=== PATIENT | female | born 1960 | race Caucasian/White ===

== ENCOUNTER 2019-08-14 02:04 | Outpatient (CLI) | payer BC, SELFPAY ==
--- NOTE | 2019-08-14 07:15 | DI.MAMMO_ITS ---
EXAM: MG MAMMO SCREENING CLINICAL HISTORY: Screening, Z12.39. TECHNIQUE: Bilateral full field digital CC and MLO mammographic images were obtained with 3D tomosyn thesis and utilizing computer aided detection (CAD). COMPARISON: Available for comparison. FINDINGS: Masses/Architectural Distortion: None seen. Microcalcifications: No suspicious pleomorphic-type are seen. Skin Thickening/Nipple Retraction: None. Since the prior examination, the patient has had interval placement of a neurostimulator. The device limits evaluation particularly on the craniocaudad view of the right breast. IMPRESSION: 1. No significant interval change with no specific features of malignancy noted. 2. Unless there is more urgent need, screening mammography is recommended, as per [employer] guidelines. ACR BI-RAD Category- 1 Negative Breast Density - Category B - Scattered areas of fibroglandular density A negative radiographic report should not delay biopsy if a dominant or clinically suspicious mass is present. Up to ten percent of cancers are not identified on mammography. A negative report may reinforce clinical impression. Adenosis and dense breasts may obscure an underlying neoplasm. False positive reports average 6 to 10%. Patient will receive a letter notifying them of these results.
== END 2019-08-14 02:24 ==
PROVIDERS: PCP Family Medicine; Visit Provider Family Medicine
DX: Z12.31 Encounter for screening mammogram for malignant neoplasm of breast (principal); Z96.82 Presence of neurostimulator
CPT/HCPCS: 77063; 77067

== ENCOUNTER 2019-08-14 03:28 | Outpatient (CLI) | payer BC, SELFPAY ==
[2019-08-14 09:54] LABS: Calculated LDL 192 mg/dL (<100); Cholesterol 289 mg/dL (<200); HDL Cholesterol 51 mg/dL (40-60); Triglyceride 233 mg/dL (<150)
== END 2019-08-14 03:48 ==
PROVIDERS: PCP Family Medicine; Visit Provider Family Medicine
DX: Z13.220 Encounter for screening for lipoid disorders (principal)
CPT/HCPCS: 36415; 80061

== ENCOUNTER 2020-03-25 03:05 | Outpatient (CLI) | payer BC, SELFPAY ==
[2020-03-25 12:18] LABS: ALT 18 U/L (14-59); AST 20 U/L (15-37); Alkaline Phosphatase 102 U/L (46-116); Anion Gap 8.7 mmol/L (3-11); BUN 22 mg/dL (7-18); Bilirubin, Total 0.5 mg/dL (0.2-1.0); CO2 26.3 mmol/L (21.0-32.0); CREATININE 0.83 mg/dL (0.55-1.02); Calcium 9.7 mg/dL (8.5-10.1); Chloride 104 mmol/L (98-107); Glucose 85 mg/dL (74-106); Lipase 52 U/L (73-393); Potassium 4.4 mmol/L (3.5-5.1); Sodium 139 mmol/L (136-145)
[2020-03-26 13:46] LABS: C Diff PCR Negative (Negative)
[2020-04-01 14:53] LABS: Campylobacter PCR Negative (Negative); Salmonella PCR Negative (Negative); Shiga Toxin PCR Negative (Negative); Shigella/Enteroinvasive Ecoli Negative (Negative)
== END 2020-03-25 03:25 ==
PROVIDERS: PCP Family Medicine; Visit Provider Family Medicine
DX: R19.7 Diarrhea, unspecified (principal)
CPT/HCPCS: 36415; 80053; 83690; 87329; 87493; 87505; 82710

== ENCOUNTER 2021-10-28 02:42 | Outpatient (CLI) | payer BC, OTHER, SELFPAY ==
[2021-10-28 08:40] LABS: ALT 9 U/L (14-59); AST 17 U/L (15-37); Albumin 3.9 g/dL (3.4-5.0); Alkaline Phosphatase 104 U/L (46-116); Anion Gap 4.6 mmol/L (3-11); BUN 16 mg/dL (7-18); Bilirubin, Total 0.4 mg/dL (0.2-1.0); CO2 28.4 mmol/L (21.0-32.0); CREATININE 0.7 mg/dL (0.55-1.02); Calcium 8.9 mg/dL (8.5-10.1); Calculated LDL 172 mg/dL (<100); Chloride 104 mmol/L (98-107); Cholesterol 279 mg/dL (<200); Glucose 89 mg/dL (74-106); HDL Cholesterol 55 mg/dL (40-60); Potassium 4.3 mmol/L (3.5-5.1); Sodium 137 mmol/L (136-145); Total Protein 6.9 g/dL (6.4-8.2); Triglyceride 263 mg/dL (<150)
[2021-10-29 11:44] LABS: Hepatitis C Ab w Rflx HCV PCR Negative (Negative)
[2021-10-29 11:55] LABS: HIV-1/2 Ag & Ab Screen Negative (Negative)
== END 2021-10-28 02:43 | disposition home or self-care (01) ==
LOC: LBO 02:42
PROVIDERS: PCP Family Medicine; Referring Provider Family Medicine; Visit Provider Family Medicine
DX: E78.5 Hyperlipidemia, unspecified (principal); Z11.3 Encounter for screening for infections with a predominantly sexual mode of transmission; Z11.4 Encounter for screening for human immunodeficiency virus [HIV]; Z11.59 Encounter for screening for other viral diseases
CPT/HCPCS: 36415; 80053; 80061; 86803; 87389

== ENCOUNTER → 2021-11-20 02:36 | Outpatient (CLI) | payer BC, OTHER, SELFPAY ==
--- NOTE | 2021-11-20 08:09 | DI.MAMMO_ITS ---
Exam(s) MAMMO SCREENING EXAM: MAMMO SCREENING CLINICAL HISTORY: screening, Z12.39 TECHNIQUE: Bilateral full field digital CC and MLO mammographic images were obtained with 3D tomosyn thesis and utilizing computer aided detection (CAD). COMPARISON: Available for comparison. FINDINGS: Masses/Architectural Distortion: There are stable bilateral breast nodules. No suspicious nodules or areas of architectural distortion is seen. Microcalcifications: No suspicious pleomorphic-type are seen. Skin Thickening/Nipple Retraction: None. IMPRESSION: 1. No significant interval change with no specific features of malignancy noted. 2. Unless there is more urgent need, screening mammography is recommended, as per [employer] guidelines. BI-RADS Category 1 - Negative Breast Density - Category B - Scattered areas of fibroglandular density Breast density category C or D implies that the patient has dense breast tissue. Dense breast tissue is very common and is not abnormal but dense breast tissue can make it harder to find cancer on a ma mmogram. Also, dense breast tissue may increase their breast cancer risk. This information about the result of the mammogram report was provided to the patient to raise their awareness. Use this report when you speak with the patient about their risks for breast cancer, which includes their family hist ory. At that time, you may recommend for more screening tests (Ultrasound or MRI) as they might be us eful based on their risk. A negative radiographic report should not delay biopsy if a dominant or clinically suspicious mass is present. Up to ten percent of cancers are not identified on mammography. A negative report may reinforce clinical impression. Adenosis and dense breasts may obscure an underlying neoplasm. False positive reports average 6 to 10%. Patient will receive a letter notifying them of these results.
== END ==
PROVIDERS: PCP Family Medicine; Visit Provider Family Medicine
DX: Z12.31 Encounter for screening mammogram for malignant neoplasm of breast (principal)
CPT/HCPCS: 77063; 77067

== ENCOUNTER 2023-11-15 14:51 | Emergency (ER) | payer BC, OTHER, SELFPAY ==
[2023-11-15] VITALS (40 sets, daily range): BP systolic 132–160; BP diastolic 73–90; PULSE 65–84; RESP 13–28; TEMP 36.6; O2SAT 97
--- NOTE | 2023-11-15 14:30 | RT.EKG_ITS ---
APPROVED REPORT Exam: Resting ECG Reason for Exam: chest heaviness Patient Location: E HR:71 bpm ECG Measurements Heart Rate 71 AXIS MA 180 P 65 QRSd 89 QRS 44 QT 433 T 44 QTc 471 Conclusion Sinus rhythm...normal P axis, V-rate 60- 99 Consider anteroseptal infarct...Q >30mS, dimin R, V1-V2 Narrow complex normal sinus rhythm at a rate of 71. Normal axis. Intervals within normal limits. S ignificant artifact in V1. Mild ST segment elevation submillimeter in V2. ST segment flattening caro d aVF and left lateral chest wall leads. No prior for comparison.
--- NOTE | 2023-11-15 14:45 | ED.GENADUL_ITS ---
Discharge Plan Disposition Patient Disposition: Home Discharge Details Clinical Impression: Chest pain, unspecified Primary Care Provider: Caden Smith ED Provider: Ben Kinney Home Meds and New Rx's Prescriptions: Continued carboxymethylcellulose sodium [Refresh Celluvisc] 1 % dropperette,gel 1 drp OP PRN Rx Instructions: to both eyes gabapentin 100 mg capsule 300 mg PO QHS Rx Instructions: Neurology at [facility] [place] hydrocortisone [Proctosol HC] 2.5 % cream with perineal applicator 1 applic GA Q6H PRN PRN (Reason: hemorrhoids) Qty: 30 6RF Patient Comments: has not needed recently fluticasone propionate [Flonase Allergy Relief] 9.9 ML spray,suspension 9.9 ml NS PRN carbidopa-levodopa 25-100 mg tablet 1 tab PO TID acetaminophen 325 mg capsule 650 mg PO Q4H PRN rosuvastatin 5 mg tablet 5 mg PO DAILY Qty: 90 3RF Discharge Instructions Instructions: Chest Pain (ED) Additional Instructions: You are seen in the emergency department for your chest pain. If you develop recurrent chest pain please return to the emergency department. Please continue taking your home medications as previously scheduled. Please follow-up with her primary care provider later this week. Discharge Data Discharge Date/Time-TO BE ENTERED AT DEPARTURE: 11/15/23 19:02 HPI General Date/Time Provider Initiated Documentation: 11/15/23 14:56 . HPI Narrative: MDM This is an uncomfortable appearing normothermic and not tachycardic 63-year-old female with hyperlipidemia and chest pressure concerning for the possibility of NSTEMI given ECG with no ST segment elevations. No tearing quality to suggest dissection. No cough to suggest pneumonia and no fevers. Not hypotensive tachycardic nor a dialysis patient so my suspicion is low for tamponade as patient has no significant pericardial effusion. Patient has been vomiting however has no crepitance so my suspicion for esophageal rupture is low. No rash to chest to suggest zoster. No pain out of proportion to suggest necrotizing soft tissue infection. No trauma to the chest so my suspicion is low for pneumothorax as patient has bilateral equal breath sounds and no indication for chest tube placement. Patient is not short of breath however PE is certainly a possibility given chest pain. Given her low risk we will obtain a D-dimer as she has no clinical signs of DVT and has a low Wells score. Will treat with 324 mg of aspirin. No ongoing chest pain so will defer nitroglycerin. 3:20 PM CBC lacks anemia thrombocytopenia and leukocytosis. 3:44 PM Negative initial troponin. Comprehensive metabolic panel with mild hyperglycemia but no anion gap. No REYNALDO. No acute electrolyte abnormalities. No LFT abnormalities. Negative D-dimer. 5:30 PM Patient felt markedly improved in the ED. No persistent chest pain. 6:38 PM Repeat troponin negative. Patient continues to feel well. I offered patient hospitalization given her elevated heart score. She requested to be discharged. I advised ED return for any recurrent chest pain and syncope. She understood her return indications. I advised PCP follow-up. She was discharged with empi contreras trial of outpatient expectant management. HEART SCORE Chest pain Diagnostic Protocol: [- History/Physical/Gestalt: Moderately Suspicious (+1)] [- EKG: Nonspecific repolarization (+1)] [- AGE: 45-65 (+1)] [- RISK FACTORS: 1 - 2 risk factors (+1)] [-TROPONIN: <= normal limit (0)] - TOTAL SCORE: 4 - Risk Factors: DM, current or recent smoker, HTN, HLD, family hx of CAD, obesity - INTERPRETATION: With a total score of 3 or less, risk of major cardiac event within six weeks 1.7%, likely lower with two negative troponins. 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 Stimulator in place right chest wall. Per my independent interpretation EKG shows: Narrow complex normal sinus rhythm at a rate of 71. Normal axis. Intervals within normal limits. Significant artifact in V1. Mild ST segment elevation submillimeter in V2. ST segment flattening lead aVF and left lateral chest wall leads. No prior for comparison. ]Medications: Aspirin ondansetron Social determinants of health affecting disposition: N/A Management discussed with: N/A Treatment/interventions considered: Hospitalization but deferred based on patient preference Response to therapies provided: Improved symptoms in the emergency department HPI This is a 63-year-old female with a history of hyperlipidemia Parkinson's disease with deep brain stimulator in place arriving to the emergency department in the setting of sudden onset weakness, chest pressure, nausea, vomiting, and diarrhea which began acutely at 11:30 AM this morning. Patient was reportedly working at that time. She called paramedics after she began vomiting and having diarrhea. She denies any pain at the moment. She said that her chest pain is improved when she lays down. She denies any radiation to her chest pain. She does have a family history significant for myocardial infarction in her father when he was age 62. Patient denies history of tobacco, ethanol, illicits. She denies history of hypertension and diabetes. Denies abdominal pain fevers dysuria frequency. No recent falls. Exam General: Uncomfortable-appearing in no acute distress speaking in complete sentences. Head: Normocephalic, atraumatic. Eye: Extraocular eye movements intact. No conjunctival injection. No scleral icterus. Ear, nose, mouth, throat: Grossly normal inspection. Normal voice, handling secretions normally. Neck: Trachea midline. Cardiovascular: Well-perfused distal extremities. Regular rate and rhythm. Respiratory: Nonlabored respiration. Clear lungs bilaterally. Gastrointestinal: Nondistended abdomen. Soft nontender. No rebound. No guarding. Musculoskeletal: No edema. Moving all 4 extremities spontaneously. Skin: Normal for age and race, grossly normal temperature and turgor. No acute rash. Neurologic: Alert and appropriate. Jaw tremor and both resting and postural tremor. There is some rigidity bilaterally and bradykinesia. GCS 15. Psychiatric: Mood and manner are appropriate. Grooming and personal hygiene are appropriate. Related Data Home Medications Medication Instructions Recorded Confirmed fluticasone propionate 50 9.9 ml NS PRN 12/01/16 11/15/23 mcg/actuation nasal spray,suspension (Flonase Allergy Relief) carboxymethylcellulose sodium 1 % 1 drp ophthalmic (eye) PRN 06/30/19 11/15/23 eye gel in a dropperette (Refresh Celluvisc) hydrocortisone 2.5 % topical cream 1 applic GA Q6H PRN PRN 03/22/20 11/15/23 with perineal applicator hemorrhoids #30 grams (Proctosol HC) acetaminophen 325 mg capsule 650 mg PO Q4H PRN 06/24/22 11/15/23 carbidopa 25 mg-levodopa 100 mg 1 tab PO TID 06/24/22 11/15/23 tablet rosuvastatin 5 mg tablet 5 mg PO DAILY #90 tabs 01/04/23 11/15/23 gabapentin 100 mg capsule 300 mg PO QHS 11/09/23 11/15/23 Previous Rx's Medication Instructions Recorded hydrocortisone 2.5 % topical cream 1 applic GA Q6H PRN PRN 03/22/20 with perineal applicator hemorrhoids #30 grams (Proctosol HC) rosuvastatin 5 mg tablet 5 mg PO DAILY #90 tabs 01/04/23 Allergies Allergy/AdvReac Type Severity Reaction Status Date / Time venom-honey bee Allergy Severe Anaphylaxsi Verified 11/09/23 08:40 s atorvastatin Allergy Intermediate Skin Rash Verified 11/09/23 08:40 latex Allergy Intermediate Skin Rash Verified 11/09/23 08:40 Beta-Blockers AdvReac Severe hypotension Verified 11/09/23 08:40 (Beta-Adrenergic Bloc propranolol HCl AdvReac Intermediate HYPOTENSION Verified 11/09/23 08:40 [From Inderal LA] verapamil AdvReac Intermediate INTOLERANT Verified 11/09/23 08:40 diazepam AdvReac Mild SEDATION Verified 11/09/23 08:40 meperidine HCl [From Demerol] AdvReac Mild Nausea Verified 11/09/23 08:40 rasagiline AdvReac Other (See Verified 11/09/23 08:40 Comment) Medical Decision Making Quality:SDOH Health Related Social Needs: No Data to Display PFSH All Active Problems (Updated 11/15/23 @ 18:41 by Ben Kinney MD) Chest pain, unspecified (Acute) Restless legs syndrome (Acute) SARS-CoV-2 positive (Acute ~03/05/22) Hyperlipidemia (Acute) Low vitamin D level (Acute) Hemorrhoids (Acute) Irritable bowel syndrome (Chronic) Hearing loss (Acute) Sleep apnea (Acute) Diverticular disease (Acute) Parkinsons disease (Chronic) s/p deep brain stimulator Chronic headache (Acute 12/26/14) Essential tremor (Acute 12/26/14) Migraine headache with aura (Acute 12/26/14) Migraine headache without aura (Acute 12/26/14) Diverticulitis of intestine with abscess (Acute) Migraine (Acute) Medical History (Updated 11/15/23 @ 18:41 by Ben Kinney MD) Colonic polyp Benign essential tremor Surgical History (Updated 09/14/23 @ 17:17 by April Haney) S/P deep brain stimulator placement History of abdominal hysterectomy History of cholecystectomy Family History Father , Age 52 Heart disease Hypertension Alcohol abuse Mother Lung cancer Parkinsons disease Essential tremor Paternal Grandmother Multiple sclerosis Maternal Grandmother Diabetes Social History (Updated 11/03/22 @ 08:45 by April Haney) Smoking/Tobacco Use Status: Never Smoking risk assessment performed?: Yes Alcohol Intake: never Drug use: Never Substance use type: does not use Adopted: No Foster care: No Household members: spouse Housing: house Number of Children: 3 number of grandchildren: 2 Education Level: high school Do you need help understanding health information?: Never current occupation: [employer] Pets and animals: No Sexually active: No Do you think of yourself as: straight/heterosexual Current gender identity: female What is your relationship status?: How often do you talk on the phone with friends or family?: once per week How often do you get together with friends or relatives?: once per week Do you belong to any clubs or organized social groups?: no Panel score (0-1 are the most socially isolated patients): 1 What type of physical activity do you participate in: decline to answer Duration: 15-30 minutes/day Frequency: 5-6 times per week Heather/Spiritism: None Seatbelt use: always Helmet use: Yes Drive intox or ride w/intox furniture delivery driver: No Working smoke detector in home: Yes Fire extinguisher in home: Yes Carbon monox detector in home: Yes Do you feel safe at home: Yes Do you feel safe in your relationship?: Yes POCUS Exam (ED) Limited Cardiac Exam DATE OF EXAM: 11/15/23 TIME OF EXAM: 15:16 PROVIDER THAT PERFORMED THE STUDY: Ben Kinney IS THIS A REPEAT EXAM DURING THIS ENCOUNTER: no REASON FOR EXAM: Chest pain VISUALIZED STRUCTURES: Four Chambers, Left ventricle and LVOT VIEW OBTAINED: Apical 4-Chamber, Parasternal long-axis and Subxiphoid PERTINENT FINDINGS/IMPRESSION: No pericardial effusion and No RV dilation DIFFERENTIAL DIAGNOSES: Aortic outflow track less than 4 cm, good squeeze, RV less than LV, no significant pericardial effusion. Exam complete
--- NOTE | 2023-11-15 15:00 | DI.RAD_ITS ---
Exam(s) XR PORTABLE CHEST AP EXAM: XR PORTABLE CHEST AP CLINICAL HISTORY: Chest pain. TECHNIQUE: 2D digital imaging was performed. COMPARISON: CR CHEST 2 VIEWS PA,LAT from 10/20/2016 FINDINGS: Single AP portable view. Right anterior chest wall stimulator with lead heading towards the intracranial compartment. Heart size is upper normal. The mediastinum is not widened. Lungs are clear. No infiltrates nor obvious pleural effusions. IMPRESSION: No acute pulmonary findings on this single AP portable view of the chest. DATA REPOSITORY: RADIATION DOSE DELIVERED:
[2023-11-15] MEDS: Normal Saline 500 ML IV (15:07)
[2023-11-15] MEDS: Aspirin 81 MG CHEW 324 MG CH (15:07)
[2023-11-15] MEDS: Ondansetron 4 MG/2 ML VIAL IVP (15:07)
[2023-11-15 15:08] LABS: Abs Immature Grans 0.06 10^3/uL (0.0-0.06); Absolute Basophil Count 0.03 10^3/uL (0.0-0.2); Absolute Eosinophil Count 0.07 10^3/uL (0.0-0.7); Absolute Lymphocyte Count 1.41 10^3/uL (1.2-3.4); Absolute Monocyte Count 0.54 10^3/uL (0.1-0.8); Absolute Neutrophil Count 8.01 10^3/uL (1.2-6.7); Basophils % 0.3 %; Eosinophils % 0.7 %; HCT 41.3 % (36.0-46.0); HGB 13.6 g/dL (11.2-15.7); Immature Grans % 0.6 %; Lymphocytes % 13.9 %; MCH 29.1 pg (27.0-33.0); MCHC 32.9 % (32.0-36.0); MCV 88 fL (80-95); MPV 9.7 fL (8.0-11.0); Monocytes % 5.3 %; Neutrophils % 79.2 %; Platelet Count 250 10^3/uL (130-400); RBC 4.68 10^6/uL (3.93-5.22); RDW 12.8 % (11.7-14.6); RDW-SD 41.2 fL; WBC 10.12 10^3/uL (4.4-10.8)
[2023-11-15 15:40] LABS: D-Dimer 479 ng/mlFEU (<500)
[2023-11-15 15:42] LABS: ALT 11 U/L (14-59); AST 14 U/L (15-37); Alkaline Phosphatase 104 U/L (46-116); Anion Gap 8.5 mmol/L (3-11); BUN 17 mg/dL (7-18); Bilirubin, Total 0.4 mg/dL (0.2-1.0); CO2 25.5 mmol/L (21.0-32.0); CREATININE 0.7 mg/dL (0.55-1.02); Calcium 9.1 mg/dL (8.5-10.1); Chloride 105 mmol/L (98-107); Estimated GFR 97.72 (mL/min/1.73m2); Glucose 151 mg/dL (74-106); Potassium 3.9 mmol/L (3.5-5.1); Sodium 139 mmol/L (136-145); Total Protein 7.5 g/dL (6.4-8.2)
[2023-11-15 15:43] LABS: Troponin I < 50 ng/L (< or =60)
[2023-11-15 18:30] LABS: Troponin I < 50 ng/L (< or =60)
== END 2023-11-15 19:02 | disposition home or self-care (01) ==
PROVIDERS: Emergency Provider Emergency Medicine; PCP Family Medicine
DX: R07.9 Chest pain, unspecified (principal)
CPT/HCPCS: 36415; 80053; 93005; 93308; 96361; 96374; 99284; 71045; 84484; 85025; 85379; 93010; 99283; J2405

== ENCOUNTER → 2023-12-03 04:09 | Outpatient (CLI) | payer BC, OTHER, SELFPAY ==
--- NOTE | 2023-12-03 06:45 | DI.MAMMO_ITS ---
Exam(s) MAMMO SCREENING EXAM: MAMMO SCREENING CLINICAL HISTORY: screening, Z12.39 TECHNIQUE: Bilateral full field digital CC and MLO mammographic images were obtained with 3D tomosyn thesis and utilizing computer aided detection (CAD). COMPARISON: Available for comparison. FINDINGS: Masses/Architectural Distortion: There is a new nodule in the central right retroareolar region appre ciated on the CC view measuring 6 mm. It is 3.3 mm from the nipple. Microcalcifications: No suspicious pleomorphic-type are seen. Skin Thickening/Nipple Retraction: None. IMPRESSION: 1. New right breast nodule. 2. Spot compression views requested for further evaluation. Limited right breast ultrasound may be i ndicated at that time. BI-RADS Category 0 - Assessment Incomplete: Need additional imaging evaluation Breast Density - Category B - Scattered areas of fibroglandular density Breast density category C or D implies that the patient has dense breast tissue. Dense breast tissue is very common and is not abnormal but dense breast tissue can make it harder to find cancer on a ma mmogram. Also, dense breast tissue may increase their breast cancer risk. This information about the result of the mammogram report was provided to the patient to raise their awareness. Use this report when you speak with the patient about their risks for breast cancer, which includes their family hist ory. At that time, you may recommend for more screening tests (Ultrasound or MRI) as they might be us eful based on their risk. A negative radiographic report should not delay biopsy if a dominant or clinically suspicious mass is present. Up to ten percent of cancers are not identified on mammography. A negative report may reinforce clinical impression. Adenosis and dense breasts may obscure an underlying neoplasm. False positive reports average 6 to 10%. Patient will receive a letter notifying them of these results.
== END ==
PROVIDERS: PCP Family Medicine; Visit Provider Family Medicine
DX: Z12.31 Encounter for screening mammogram for malignant neoplasm of breast (principal)
CPT/HCPCS: 77063; 77067

== ENCOUNTER → 2023-12-08 00:26 | Outpatient (CLI) | payer BC, OTHER, SELFPAY ==
--- NOTE | 2023-12-08 | DI.US_ITS ---
Exam(s) US BREAST RT COMPLETE EXAM: US BREAST RT COMPLETE CLINICAL HISTORY: New Rt Breast nodule. TECHNIQUE: Complete ultrasound of the right breast was performed including all 4 quadrants, the retr oareolar region, and the ipsilateral axilla. COMPARISON: Prior mammograms were reviewed. FINDINGS: SEE COMBINED REPORT IMPRESSION: Appropriate follow-up is . BI-RADS Category 3 - 6 month - Probably Benign Finding: Recommend follow-up mammography in 6 months Breast Density - Category B - Scattered areas of fibroglandular density Breast density Category C or D implies that the patient has dense breast tissue. Dense breast tissue can make it harder to find cancer on a mammogram. Dense breast tissue is also associated with an incr eased risk of breast cancer. This information about the result of the mammogram report was provided to the patient to raise their awareness. Use this report when you speak with the patient about their risks for breast cancer, which includes their family history. At that time, you may recommend additional screening tests (Ultrasoun d or MRI) as these tests may add significant information. A negative radiographic report should not delay biopsy if a dominant or clinically suspicious mass is present. Up to ten percent of cancers are not identified on mammography. A negative report may reinforce clinical impression. Adenosis and dense breasts may obscure an underlying neoplasm. False positive reports average 6 to 10%. Patient will receive a letter notifying them of these results.
--- NOTE | 2023-12-08 | DI.MAMMO_ITS ---
Exam(s) MG MAMMO SCREEN CALL BACK UNI EXAM: MG MAMMO SCREEN CALL BACK UNI-RIGHT AND COMPLETE RIGHT BREAST ULTRASOUND CLINICAL HISTORY: NEW RT BREAST NODULE R92.8 ABNL MAMMO. TECHNIQUE: Unilateral RIGHT BREAST spot mammographic images obtained with 3D tomosynthesisand utiliz ing computer aided detection (CAD). . Complete RIGHT breast Ultrasound was also performed, including all 4 quadrants, the retroareolar homer on, and the ipsilateral axilla. COMPARISON: Prior mammograms were reviewed. This additional imaging was performed due to findings described on the recent screening mammogram of 12/03/2023. FINDINGS: DIAGNOSTIC MAMMOGRAM: Additional mammographic views performed todaydoes not dissipate the new nodule. We proceeded with cierra white. COMPLETE RIGHT BREAST ULTRASOUND: Ultrasound performed today reveals 2 findings at the 12 o'clock position. There is a microcyst which measures 5 x 3 mm, corresponding to one of the 2 nodules in the retroareol ar region on the mammogram.. Adjacent to this is a subtle finding which has benign appearance, is wi shiv than taller, measuring approximately 10 by 4 mm, possibly representing part of her pattern or a s mall conglomeration microcysts. Nevertheless, it has benign appearance. A 3rd finding is at the 7 o'clock position where there is a 8 x 5 mm microcyst. This probably corres ponds to the larger of the 2 mood nodule seen on the mammogram, this being the newer nodule which was mention on the recent screening mammogram of 12/03/2023. There are no other new ultrasound findings in all 4 quadrants. Scanning of the ipsilateral axilla reveals no significant adenopathy. IMPRESSION: 1. Three benign-appearing ultrasound findings in the retroareolar region of the right breast, as michael cribed individually above. 2. I feel that the new finding on the mammogram corresponds to an 8 x 5 mm microcyst which is seen a t the central 7 o'clock position. Appropriate follow-up as discussed by myself with the patient today is repeat right breast mammogram and ultrasound in 6 months. The patient was informed of these findings and recommendations by myself prior to leaving the departm ent today. BI-RADS Category 3 - 6 month - Probably Benign Finding: Recommend follow-up mammography in 6 months Breast Density - Category B - Scattered areas of fibroglandular density Breast density Category C or D implies that the patient has dense breast tissue. Dense breast tissue can make it harder to find cancer on a mammogram. Dense breast tissue is also associated with an incr eased risk of breast cancer. This information about the result of the mammogram report was provided to the patient to raise their awareness. Use this report when you speak with the patient about their risks for breast cancer, which includes their family history. At that time, you may recommend additional screening tests (Ultrasoun d or MRI) as these tests may add significant information. A negative radiographic report should not delay biopsy if a dominant or clinically suspicious mass is present. Up to ten percent of cancers are not identified on mammography. A negative report may reinforce clinical impression. Adenosis and dense breasts may obscure an underlying neoplasm. False positive reports average 6 to 10%. Patient will receive a letter notifying them of these results.
== END ==
PROVIDERS: PCP Family Medicine; Visit Provider Family Medicine
DX: N63.10 Unspecified lump in the right breast, unspecified quadrant (principal); R92.8 Other abnormal and inconclusive findings on diagnostic imaging of breast
CPT/HCPCS: 76642; 77063; 77067

== ENCOUNTER 2024-02-15 15:01 | Emergency (ER) | payer BC, OTHER, SELFPAY ==
--- NOTE | 2024-02-15 15:00 | RT.EKG_ITS ---
APPROVED REPORT Exam: Resting ECG Reason for Exam: Stroke eval Patient Location: E HR:78 bpm ECG Measurements Heart Rate 78 AXIS ND 171 P 40 QRSd 91 QRS 18 QT 392 T 26 QTc 446 Conclusion Sinus rhythm Rate 78 Baseline tremor artifact somewhat limits interpretation, no STEMI noted
[2024-02-15 15:03] VITALS: BP 162/87; PULSE 79; RESP 16; TEMP 36.1; O2SAT 97
--- NOTE | 2024-02-15 15:15 | DI.CT_ITS ---
Exam(s) CT BRAIN NECK CTA EXAM: CT BRAIN NECK CTA CLINICAL HISTORY: R. facial numbness, AUGUSTIN. TECHNIQUE: Imaging Protocol: Axial CT angiography was performed with multi-slice acquisition and mu lti-planar and/or 3D reconstructions. CONTRAST MATERIAL: Intravenous: Omnipaque 350 contrast volume:70 mL COMPARISON: CT HEAD WITHOUT CONTRAST from 09/19/2017 FINDINGS: There is artifact from the patient's implants. CT Head W/O and W: Ventricles and Extra axial spaces: Normal in size and morphology for the patient's age. Hemorrhage: None. Cerebral parenchyma: No acute territorial infarct is identified at this time. There is no mass effec t or midline shift. Midline shift: None. Brainstem/Cerebellum: Normal. Calvarium: Normal. Visualized Paranasal sinuses/Mastoids: There is mild mucosal thickening in the right maxillary sinus. There is opacification of several ethmoid air cells bilaterally. Soft Tissues: Unremarkable. Enhancement: Unremarkable. CTA Neck W: Common Carotid: Right: No dissection, occlusion or significant stenosis. Left: No dissection, occlusion or significant stenosis. Mild atherosclerotic calcification of the ca rotid bulb, but no significant stenosis is present. External Carotid: Right: No occlusion or significant stenosis. Left: No occlusion or significant stenosis. Internal Carotid: Right: No dissection, occlusion or significant stenosis. Left: No dissection, occlusion or significant stenosis. Vertebral Artery: Right: No occlusion or significant stenosis. Left: No occlusion or significant stenosis. Lung Apices: No infiltrates or apical pneumothorax. Bones: Within normal limits for the patient's age. Soft Tissues: Normal. Thyroid gland: Unremarkable. CTA Brain W: Internal Carotid Arteries: No evidence of an aneurysm, occlusion or significant stenosis. Anterior Cerebral Arteries: Right: No aneurysm, occlusion or significant stenosis. Left: No aneurysm, occlusion or significant stenosis. Middle Cerebral Arteries: Right: No aneurysm, occlusion or significant stenosis. Left: No aneurysm, occlusion or significant stenosis. Posterior Cerebral Arteries: Right: No aneurysm, occlusion or significant stenosis. Left: No aneurysm, occlusion or significant stenosis. Vertebral Arteries: Right: No aneurysm, occlusion or significant stenosis. Left: No aneurysm, occlusion or significant stenosis. Basilar Artery: No aneurysm, occlusion or significant stenosis. IMPRESSION: 1. No large vessel occlusion or significant stenosis on the CT angiography of the head. 2. Within the limits of the examination, no acute intracranial process. 3. No occlusion or significant stenosis on the CT angiography of the neck. RADIATION DOSE DELIVERED: Total DLP DATA REPOSITORY: All CT scans at this facility are submitted to the National Radiology Data Registry (NRDR) Dose Index Registry (DIR) with the [employer] (ACR). RADIATION OPTIMIZATION: All CT scans at this facility use at least one of these dose optimization te chniques: automated exposure control; mA and/or kV adjustment per patient size (includes targeted exa ms where dose is matched to clinical indication); or iterative reconstruction.
[2024-02-15 15:24] LABS: Abs Immature Grans 0.03 10^3/uL (0.0-0.06); Absolute Basophil Count 0.05 10^3/uL (0.0-0.2); Absolute Eosinophil Count 0.18 10^3/uL (0.0-0.7); Absolute Lymphocyte Count 2.28 10^3/uL (1.2-3.4); Absolute Monocyte Count 0.82 10^3/uL (0.1-0.8); Absolute Neutrophil Count 4.97 10^3/uL (1.2-6.7); Basophils % 0.6 %; Eosinophils % 2.2 %; HCT 44.9 % (36.0-46.0); HGB 14.6 g/dL (11.2-15.7); Immature Grans % 0.4 %; Lymphocytes % 27.4 %; MCH 28.8 pg (27.0-33.0); MCHC 32.5 % (32.0-36.0); MCV 89 fL (80-95); MPV 9.4 fL (8.0-11.0); Monocytes % 9.8 %; Neutrophils % 59.6 %; Platelet Count 246 10^3/uL (130-400); RBC 5.07 10^6/uL (3.93-5.22); RDW 12.6 % (11.7-14.6); RDW-SD 40.6 fL; WBC 8.33 10^3/uL (4.4-10.8)
[2024-02-15 15:34] LABS: Prothrombin Time 10.1 sec (9.1-11.1)
--- NOTE | 2024-02-15 15:34 | ED.GENADUL_ITS ---
Discharge Plan Disposition Patient Disposition: Home Condition: Stable Discharge Details Clinical Impression: Headache, Parkinsons disease, Migraine, Restless legs syndrome, Gastroenteritis, Rt facial numbness, Low serum potassium Primary Care Provider: Caden Smith ED Provider: Kadie Alcantara Home Meds and New Rx's Prescriptions: No Action carboxymethylcellulose sodium [Refresh Celluvisc] 1 % dropperette,gel 1 drp OP PRN Rx Instructions: to both eyes gabapentin 100 mg capsule 300 mg PO QHS Rx Instructions: Neurology at [facility] [place] fluticasone propionate [Flonase Allergy Relief] 9.9 ML spray,suspension 9.9 ml NS PRN carbidopa-levodopa 25-100 mg tablet 1 tab PO TID acetaminophen 325 mg capsule 650 mg PO Q4H PRN rosuvastatin 5 mg tablet 5 mg PO DAILY Qty: 90 3RF Discharge Instructions Instructions: Headache, Adult ED Additional Instructions: You were seen in the emergency department today for evaluation of headache, facial numbness, and diarrhea. In our department you had a full physical examination performed, had laboratory studies that were reassuring and had a CT scan of your head and the blood vessels inside that did not show any abnormalities to account for your symptoms. The studies that are still pending are your tick studies, and you will need to have an MRI performed in the outpatient environment given your deep brain stimulator. You were also incidentally noted to have a mildly low potassium, and can supplement with [id number] medications such as potassium chloride or potassium rich foods such as bananas and potatoes. If you have difficulty scheduling your MRI please reach out to your primary care provider, and you should return to the emergency department if you have a sudden change or worsening of your symptoms, no weakness of 1 side of the body or difficulty ambulating, or any other symptoms that cause you concern. Thank you for allowing us to be part of your care. HPI General Mode of arrival: ambulatory . Date/Time Provider Initiated Documentation: 02/15/24 15:09 . Limitations to Documentation: no limitations . Information obtained by: patient, family and old records reviewed . HPI Narrative: MDM: In brief, this is a 63-year-old female patient presenting for evaluation of 1 day of nausea with diarrhea, right sided facial numbness that she woke up with this morning, and a gradual headache since yesterday. My differential includes but is not limited to stroke, TIA, intracranial hemorrhage, effects of Parkinson's disease. No thunderclap quality to the headache to strongly suggest SAH, patient does have a history of migraines and I did consider hemiplegic/atypical migraine syndromes. Certainly considered tickborne illnesses, though the patient is without known exposure or comorbid joint tenderness or rash. Considered metabolic and electrolyte derangements, kidney injury, liver disease. No chest pain to suggest ACS, patient's diarrhea does increase my concern for an abdominal etiology, though she is reassuringly without abdominal pain or tenderness, and does not have fever. I did consider gastroenteritis, the patient does not have travel or exposure risk for bacterial or parasitic diarrheas. Considered appendicitis, diverticulitis, pancreatitis, cholecystitis, hepatitis, though these are less consistent with the patient's history and physical examination. We will obtain laboratory studies to include CBC, CMP, magnesium, troponin, PT/INR, and will obtain an EKG. Given that the patient has a deep brain stimulator in place I will proceed first with CTA of the head and neck, and will work with radiology to determine if this patient could undergo MRI imaging here in the emergency department. I suspect that it may be challenging to do so, and set this expectation with the patient that she may require MRI imaging and an alternative facility. ED Course: I reviewed the patient's laboratory studies, which show no leukocytosis, anemia or thrombocytopenia. She does have a mild decrease in her serum potassium to 3.4 compared to baseline, but no evidence of kidney injury or liver dysfunction. Troponin is negative. I independently interpreted the patient's CT imaging, which demonstrates no intracranial hemorrhage, evidence of mass effect, or vascular abnormalities to account for her symptoms. We did shared decision-making conversation regarding MRI imaging, which would be the next step in workup and management. I discussed the case with the MRI team, and the patient would require special protocol isolation of the MRI study given her deep brain stimulator. For this reason this would be better done in the daytime when all available staff members were present, and given that our hospital is at capacity, I did offer the patient transfer to an alternative facility to await MRI imaging. The patient reports that she would prefer to have this study done as an outpatient. Order was placed and the patient's primary care provider was updated so that they can follow on the results. At this time, the patient has had a full medical evaluation and is safe for discharge to home. They are hemodynamically stable, ambulatory, and tolerating PO. They are understanding of the follow-up plan and return precautions. They left our facility without incident. Kadie Alcantara MD HPI: This is a 63-year-old female patient presenting for evaluation of facial numbness and headache. She was sent from her providers office for stroke workup, after she went to the clinic today with these complaints. She reports that yesterday she had an episode of diarrhea, and had some nausea as well. She states that she had a similar episode in October, during which time a formal diagnosis of the cause of her symptoms was never made. She states that yesterday she began to develop a headache, that has gradually worsened and is worse on the right side of her head. She feels like her right eye is dry and blurry, has not had any other vision changes. Did not sustain trauma, has not had fevers or chills. When she woke up this morning she states that she noted that her right sided face was numb, and this is different for her from baseline. She does occasionally experience some right upper extremity numbness due to her Parkinson's disease, states that she has a left foot drop/drag during ambulation at baseline. The patient has not had recent travel, exposure to unclean water, or known tick bites. Nobody else in her home is sick with similar symptoms. She has been able to eat and drink normally for her, and has not had vomiting but has had nausea. She has been taking all of her medications as prescribed. Exam: Gen: Awake and alert, in no apparent distress HEENT: Non-icteric sclera, pupils equal and reactive at 3 mm bilaterally, EOMs are full and there are no visual field cuts Neck: Supple Lungs: No apparent respiratory distress, normal respiratory effort. CV: Appears well perfused, strong distal pulses Abdomen: Non-distended, soft, nontender MSK: Moves 4 extremities without apparent limitation in ROM Skin: Visualized skin without rashes, cyanosis. Neuro: Cranial nerves II through XII intact and symmetrical bilaterally with the exception of the patient's sensation on her right face, which feels dull compared to the contralateral side. No pronator drift, 5 out of 5 strength x 4 extremities, baseline tremors appreciated. The patient has a slight asymmetry in her eyelids which is reported as baseline for her per herself and her family. Psych: Appropriate for situation. Related Data Home Medications ?Medication ?Instructions ?Recorded ?Confirmed fluticasone propionate 50 9.9 ml NS PRN 12/01/16 02/15/24 mcg/actuation nasal spray,suspension (Flonase Allergy Relief) carboxymethylcellulose sodium 1 % 1 drp ophthalmic (eye) PRN 06/30/19 02/15/24 eye gel in a dropperette (Refresh Celluvisc) acetaminophen 325 mg capsule 650 mg PO Q4H PRN 06/24/22 02/15/24 carbidopa 25 mg-levodopa 100 mg 1 tab PO TID 06/24/22 02/15/24 tablet gabapentin 100 mg capsule 300 mg PO QHS 11/09/23 02/15/24 rosuvastatin 5 mg tablet 5 mg PO DAILY #90 tabs 12/21/23 02/15/24 Previous Rx's ?Medication ?Instructions ?Recorded rosuvastatin 5 mg tablet 5 mg PO DAILY #90 tabs 12/21/23 Allergies Allergy/AdvReac Type Severity Reaction Status Date / Time venom-honey bee Allergy Severe Anaphylaxsi Verified 02/15/24 15:06 s atorvastatin Allergy Intermediate Skin Rash Verified 02/15/24 15:06 latex Allergy Intermediate Skin Rash Verified 02/15/24 15:06 Beta-Blockers AdvReac Severe hypotension Verified 02/15/24 15:06 (Beta-Adrenergic Bloc propranolol HCl (From AdvReac Intermediate HYPOTENSION Verified 02/15/24 15:06 Inderal LA) verapamil AdvReac Intermediate INTOLERANT Verified 02/15/24 15:06 diazepam AdvReac Mild SEDATION Verified 02/15/24 15:06 meperidine HCl (From Demerol) AdvReac Mild Nausea Verified 02/15/24 15:06 rasagiline AdvReac Other (See Verified 02/15/24 15:06 Comment) General Stated Complaint: Headache COLIN: 2 Course Vital Signs Vital signs: Vital Signs Temperature 36.1 C L 02/15/24 15:03 Pulse 79 02/15/24 15:03 Respiratory Rate 16 02/15/24 15:03 Blood Pressure 162/87 H 02/15/24 15:03 Pulse Oximetry 97 02/15/24 15:03 Temperature 36.1 C L 02/15/24 15:03 Pulse 79 02/15/24 15:03 Respiratory Rate 16 02/15/24 15:03 Respiratory Effort Normal 02/15/24 15:06 Blood Pressure 162/87 H 02/15/24 15:03 Pulse Oximetry 97 02/15/24 15:03 Oxygen Delivery Method Room Air 02/15/24 15:03 Oxygen Flow Rate 0 02/15/24 15:03 Lab/Test Results Lab/Test Results: Laboratory Tests Range/Units 02/15/24 15:15 WBC (4.4-10.8) 10^3/uL 8.33 RBC (3.93-5.22) 10^6/uL 5.07 Hgb (11.2-15.7) g/dL 14.6 Hct (36.0-46.0) % 44.9 MCV (80-95) fL 89 MCH (27.0-33.0) pg 28.8 MCHC (32.0-36.0) % 32.5 RDW (11.7-14.6) % 12.6 Plt Count (130-400) 10^3/uL 246 MPV (8.0-11.0) fL 9.4 Immature Gran % % 0.4 Neutrophils % % 59.6 Lymphocytes % % 27.4 Monocytes % % 9.8 Eosinophils % % 2.2 Basophils % % 0.6 Nucleated RBC % (0.0-0.3) % 0.0 Absolute Neutrophils (1.2-6.7) 10^3/uL 4.97 Absolute Lymphocytes (1.2-3.4) 10^3/uL 2.28 Absolute Monocytes (0.1-0.8) 10^3/uL 0.82 H Absolute Eosinophils (0.0-0.7) 10^3/uL 0.18 Absolute Basophils (0.0-0.2) 10^3/uL 0.05 Medical Decision Making Quality:SDOH Health Related Social Needs: No Data to Display PFSH All Active Problems (Updated 02/15/24 @ 18:11 by Kadie Alcantara MD) Low serum potassium (Acute) Rt facial numbness (Acute) Headache (Acute) Gastroenteritis (Acute) Restless legs syndrome (Acute) SARS-CoV-2 positive (Acute ~03/05/22) Hyperlipidemia (Acute) Low vitamin D level (Acute) Hemorrhoids (Acute) Irritable bowel syndrome (Chronic) Hearing loss (Acute) Sleep apnea (Acute) Diverticular disease (Acute) Parkinsons disease (Chronic) s/p deep brain stimulator Chronic headache (Acute 12/26/14) Essential tremor (Acute 12/26/14) Migraine headache with aura (Acute 12/26/14) Migraine headache without aura (Acute 12/26/14) Diverticulitis of intestine with abscess (Acute) Migraine (Acute) Medical History (Updated 02/15/24 @ 18:11 by Kadie Alcantara MD) Colonic polyp Benign essential tremor Surgical History (Updated 02/15/24 @ 18:11 by Kadie Alcantara MD) S/P deep brain stimulator placement History of abdominal hysterectomy History of cholecystectomy Family History Father , Age 52 Heart disease Hypertension Alcohol abuse Mother Lung cancer Parkinsons disease Essential tremor Paternal Grandmother Multiple sclerosis Maternal Grandmother Diabetes Social History (Updated 11/03/22 @ 08:45 by April Haney) Smoking/Tobacco Use Status: Never Smoking risk assessment performed?: Yes Alcohol Intake: never Drug use: Never Substance use type: does not use Adopted: No Foster care: No Household members: spouse Housing: house Number of Children: 3 number of grandchildren: 2 Education Level: high school Do you need help understanding health information?: Never current occupation: [employer] Pets and animals: No Sexually active: No Do you think of yourself as: straight/heterosexual Current gender identity: female What is your relationship status?: How often do you talk on the phone with friends or family?: once per week How often do you get together with friends or relatives?: once per week Do you belong to any clubs or organized social groups?: no Panel score (0-1 are the most socially isolated patients): 1 What type of physical activity do you participate in: decline to answer Duration: 15-30 minutes/day Frequency: 5-6 times per week Heather/Orthodox: None Seatbelt use: always Helmet use: Yes Drive intox or ride w/intox tractor driver teamster: No Working smoke detector in home: Yes Fire extinguisher in home: Yes Carbon monox detector in home: Yes Do you feel safe at home: Yes Do you feel safe in your relationship?: Yes
[2024-02-15 15:45] LABS: ALT 11 U/L (14-59); AST 13 U/L (15-37); Alkaline Phosphatase 104 U/L (46-116); Anion Gap 8.7 mmol/L (3-11); BUN 17 mg/dL (7-18); Bilirubin, Total 0.34 mg/dL (0.2-1.0); CO2 26.3 mmol/L (21.0-32.0); CREATININE 0.7 mg/dL (0.55-1.02); Calcium 9.7 mg/dL (8.5-10.1); Chloride 108 mmol/L (98-107); Estimated GFR 97.72 (mL/min/1.73m2); Glucose 121 mg/dL (74-106); Magnesium 2.2 mg/dL (1.8-2.4); Potassium 3.4 mmol/L (3.5-5.1); Sodium 143 mmol/L (136-145); Total Protein 7.7 g/dL (6.4-8.2)
[2024-02-15 15:46] LABS: Troponin I < 50 ng/L (< or =60)
[2024-02-15] MEDS: Omnipaque 350 MG/ML 100 ML BTL IJ (16:40)
[2024-02-15] MEDS: Normal Saline - Diluent 50 ML VIAL IJ (16:55)
[2024-02-15 18:39] VITALS: BP 137/89; PULSE 74; RESP 18; O2SAT 94
[2024-02-17 09:56] LABS: Lyme Ab w Rflx to Lyme Confirm Negative (Negative)
[2024-02-19 16:39] LABS: Anaplasma phagocytophilum Negative (Negative); B. miyamotoi PCR Negative (Negative); Babesia divergens/MO-1 Negative (Negative); Babesia duncani Negative (Negative); Babesia microti Negative (Negative); Ehrlichia chaffeensis Negative (Negative); Ehrlichia ewingii/canis Negative (Negative); Ehrlichia muris eauclairensis Negative (Negative)
== END 2024-02-15 18:40 | disposition home or self-care (01) ==
PROVIDERS: Emergency Provider Emergency Medicine; PCP Family Medicine
DX: G43.909 Migraine, unspecified, not intractable, without status migrainosus (principal); G20.C Parkinsonism, unspecified; G25.81 Restless legs syndrome; R20.0 Anesthesia of skin; K52.9 Noninfective gastroenteritis and colitis, unspecified; E87.6 Hypokalemia
CPT/HCPCS: 36415; 70496; 70498; 80053; 87798; 93005; 99285; 83735; 84484; 85025; 85610; 86618; 93010; 99284; J3490

== ENCOUNTER 2024-06-01 02:16 | Outpatient (CLI) | payer BC, OTHER, SELFPAY ==
--- NOTE | 2024-06-01 09:55 | DI.MAMMO_ITS ---
Exam(s) MG MAMMO DIAGNOSTIC UNI US BREAST RT LIMITED EXAM: MG MAMMO DIAGNOSTIC UNI CLINICAL HISTORY: f/u abnl mammo,r92.8, rt microcyst. COMPARISON: US US BREAST RT LIMITED from 06/01/2024 TECHNIQUE: Craniocaudal and mediolateral oblique Full Field Digital Mammography views of the right b reast with Computer Aided Diagnosis followed by Tomosynthesis and right breast ultrasound. FINDINGS: Mammography/Tomosynthesis: Masses: Stable small nodules in the subareolar region. Architectural Distortion: None seen. Microcalcifications: No suspicious pleomorphic-type are seen. Skin Thickening/Nipple Retraction: None. Right breast US: Echotexture: Normal appearance of the glandular tissue. Shadowing: No suspicious foci. Cyst: Stable area of clustered microcysts in the 12 o'clock position 1 cm from the nipple. Adjacent 5 x 3 millimeter area of clustered microcysts. Stable cyst in the 7 o'clock position near the nipple . Solid lesions: None seen. Ductal dilation: None. IMPRESSION: 1. No evidence of malignancy is noted. 2. Unless there is more urgent need, follow-up screening mammography is recommended, as per [place] [employer] guidelines. BI-RADS Category 2 - Benign Findings Breast Density - Category B - Scattered areas of fibroglandular density A negative radiographic report should not delay biopsy if a dominant or clinically suspicious mass is present. Up to ten percent of cancers are not identified on mammography. A negative report may reinforce clinical impression. Adenosis and dense breasts may obscure an underlying neoplasm. False positive reports average 6 to 10%. Patient will receive a letter notifying them of these results.
== END 2024-06-01 02:36 ==
PROVIDERS: PCP Family Medicine; Visit Provider Family Medicine
DX: R92.8 Other abnormal and inconclusive findings on diagnostic imaging of breast (principal); Z12.31 Encounter for screening mammogram for malignant neoplasm of breast
CPT/HCPCS: 76642; 77061; 77065; G0279